=== PATIENT | male | born 1945 | race Caucasian/White ===

== ENCOUNTER 2018-06-08 06:54 | Day surgery (SDC) | payer MEDICARE ==
[2016-11-12 11:45] VITALS: BMI 28.1
[2018-06-08] MEDS ORDERED: Propofol 10 mg/ml Inj (20 ML) ONE (07:54)
[2018-06-08] MEDS ORDERED: Phenylephrine 10 mg/ml Inj ONE (07:55)
[2018-06-08] MEDS ORDERED: Lidocaine Hydrochloride 5 ML INJ ONE (07:55)
[2018-06-08] MEDS ORDERED: Lactated Ringer's 500 ML IV ONE ×2 (08:09)
--- NOTE | 2018-06-08 08:09 | CP.SDSHP ---
Same Day Surgery H & P - History Proposed Procedure: COLONSCOPY Pre-Op Diagnosis: SEE LIST - Previous Medical/Surgical History Cardiac: Hypertension Pulmonary: Asthma Endocrine/Metabolic: Other Misc: Other Pain: 2.Mild Pain - Allergies Allergies: Allergies No Known Allergies Allergy (Verified 11/12/16 11:43) - Physical Exam General Appearance: N Vital Signs: Vital Signs 06/08/18 07:34 Temperature 97 F L Pulse Rate 66 Respiratory 20 Rate Blood Pressure 151/84 H O2 Sat by Pulse 98 Oximetry Mental Status: Alert & Oriented x3 Neuro: WNL Heart: Other Lungs: Other GI: WNL - {Optional Preform as Required} Breast: WNL Abdomen: Other Rectal: WNL Integument: WNL : WNL Ortho: WNL ENT: WNL - Impression Pt. Evaluated Today:Candidate for Anesthesia & Procedure: Yes - Date & Time Time: 08:09 Short Stay Discharge - Short Stay Discharge Admitting Diagnosis/Reason for Visit: SCREENING Disposition: HOME/ ROUTINE
[2018-06-08 08:56] VITALS: TEMP 97.5
[2018-06-08] MEDS ORDERED: Belladonna-Phenobarbital PO ONE (09:00)
[2018-06-08 09:01] VITALS: O2SAT 95
[2018-06-08 10:41] VITALS: BP 135/67; PULSE 63; RESP 18
== END 2018-06-08 09:56 | disposition home or self-care (01) ==
LOC: C.ENDO 06:54
PROVIDERS: ATTEND Specialist
DX: K58.9 Irritable bowel syndrome, unspecified (principal); Z12.11 Encounter for screening for malignant neoplasm of colon; K64.8 Other hemorrhoids; I10 Essential (primary) hypertension; J45.909 Unspecified asthma, uncomplicated
CPT/HCPCS: 45380; 88305; J2001; J2370; J2704; J7120